=== PATIENT | female | born 1940 | race Caucasian/White ===

== ENCOUNTER 2024-03-28 06:20 | Day surgery (SDC) | payer MEDICARE, OTHER, SELFPAY ==
[2024-03-07 13:38] LABS: Hematocrit 41.6 % (37.0-47.0); Hemoglobin 14.4 g/dL (12.0-16.0); Mean Corp Hgb Conc. 34.6 g/dL (33.0-37.0); Mean Corpuscular Hgb 31.4 pg (27.0-31.0); Mean Corpuscular Volume 90.8 fL (81.0-99.0); Mean Platelet Volume 9.3 fL (7.4-10.4); Platelet Count 483 10^3/uL (130-400); Red Blood Cell Count 4.58 10^6/uL (4.20-5.40); Red Cell Dist. Width 13.9 % (11.5-14.5); White Blood Cell Count 6.9 10^3/uL (4.8-10.8)
[2024-03-07 14:00] VITALS: BMI 19.9
[2024-03-07 14:18] LABS: Glycohemoglobin (HgbA1c) 6.1 % (4.0-5.6)
[2024-03-07 15:44] LABS: ALT (SGPT) 18 U/L (0-35); AST (SGOT) 28 U/L (14-36); Albumin 4.4 g/dl (3.5-5.0); Alkaline Phosphatase 60 U/L (38-126); Blood Urea Nitrogen 16 mg/dl (7-17); Calcium 9.7 mg/dl (8.4-10.2); Carbon Dioxide 26 mmol/L (22-30); Chloride 97 mmol/L (98-107); Estimated Creatinine Clearance 56 ml/min; Glucose 95 mg/dl (70-99); Potassium 5.5 mmol/L (3.5-5.1); Sodium 133 mmol/L (135-145); Total Bilirubin 0.4 mg/dl (0.2-1.3); Total Protein 6.8 g/dl (6.3-8.2); eGFR > 60.00
--- NOTE | 2024-03-16 15:59 | VNURNOTE ---
Patient is scheduled for an elective THR on 03/28/24. Spoke with patient prior to surgery via telephone. Introduced role of [facility] liaison. Patient reports that she lives in [place] with her spouse.
PCP is Emily Yip.
DME: pily Thomason
Pharm: [facility] in [place] [phone]
Discussed orthopedic program and post surgical plans. Reviewed anticipated length of stay and that goal is for her to return home at discharge. She will go to outpatient PT. Patient will have support from her spouse when she goes home.
Patient lives in [place]. Patient will be going to Outpt PT
Plan: Outpt PT at [facility] ph # [phone]. Patient is scheduled to start 03/31
--- NOTE | 2024-03-24 14:05 | PTCARENOTE ---
Patients 03/07 potassium 5.5- Dr. Becker notified- requested repeat day of surgery
[2024-03-28] VITALS (13 sets, daily range): BP systolic 117–132; BP diastolic 70–90; BMI 19.9
[2024-03-28] MEDS: NSS 1000 IV (07:16)
[2024-03-28] MEDS: TYLENOL 650 MG PO (07:16)
[2024-03-28 08:00] LABS: Blood Urea Nitrogen 16 mg/dl (7-17); Calcium 9.7 mg/dl (8.4-10.2); Carbon Dioxide 25 mmol/L (22-30); Chloride 102 mmol/L (98-107); Estimated Creatinine Clearance 65 ml/min; Glucose 101 mg/dl (70-99); Potassium 4.5 mmol/L (3.5-5.1); Sodium 135 mmol/L (135-145); eGFR > 60.00
--- NOTE | 2024-03-28 11:07 | VNURNOTE ---
Spoke with Elva at Ortho, aware of outpt PT start date of 03/31.
[2024-03-28] MEDS: ROXICODONE 5 MG PO (11:44)
[2024-03-28] MEDS: ANCEF 5 IV (12:44)
--- NOTE | 2024-03-28 13:04 | CM ---
CM spoke with Indigo at [facility] and confirmed the following appointments given patient's preference:
03/29/2024 at 1:30pm
03/30/2024 at 4:30pm
04/04/2024 at 10:00 am
Patient is aware. CM updated CM director with appointment plan.
== END 2024-03-28 13:34 | disposition home or self-care (01) ==
LOC: SDS 06:20
PROVIDERS: Student in an Organized Health Care Education/Training Program; ATTENDING PHYSICIAN Specialist; FAMILY PHYSICIAN Family Medicine; REFERRING PHYSICIAN Internal Medicine Cardiovascular Disease
DX: M16.11 Unilateral primary osteoarthritis, right hip (principal); M85.851 Other specified disorders of bone density and structure, right thigh; M50.30 Other cervical disc degeneration, unspecified cervical region; M17.12 Unilateral primary osteoarthritis, left knee; Z96.652 Presence of left artificial knee joint
CPT/HCPCS: 27130; 36415; 73502; 80048; 80053; 83036; 85027; 87070; 97116; 97162; C1713; C1776